=== PATIENT | female | born 1940 | race Caucasian/White ===

== ENCOUNTER 2017-01-02 15:56 | Emergency (ER) | payer MEDICARE, OTHER ==
[~2017-01-02] VITALS: Ht 167.6 cm; Wt 72.6 kg
[2017-01-02 16:02] VITALS: BP_SYST 124
--- NOTE | 2017-01-02 16:21 | NUR ---
Pt placed to ER bed 02, report given to DANETTE Patel.
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
--- NOTE | 2017-01-02 16:32 | NUR ---
ER at bedside examining patient.
--- NOTE | 2017-01-02 16:57 | NUR ---
Patient given written and verbal discharge instructions and verbalizes understanding. ER MD discussed with patient the results and treatment provided. Patient in stable condition. ID arm band removed. Rx of none given. Patient educated on pain management and to follow up with PMD. Pain Scale 0/10. Opportunity for questions provided and answered.
== END 2017-01-02 16:57 | disposition home or self-care (01) ==
LOC: SED 15:56
DX: S40.021A Contusion of right upper arm, initial encounter (principal); Z88.5 Allergy status to narcotic agent; E03.9 Hypothyroidism, unspecified; W18.00XA Striking against unspecified object with subsequent fall, initial encounter; Y93.89 Activity, other specified; Y92.89 Other specified places as the place of occurrence of the external cause; Y99.8 Other external cause status
CPT/HCPCS: 99281

== ENCOUNTER 2019-04-26 20:31 | Emergency (ER) | payer OTHER ==
[~2019-04-26] VITALS: Ht 165.1 cm; Wt 68.0 kg
[2019-04-26 20:35] VITALS: BP_SYST 140
--- NOTE | 2019-04-26 20:35 | NUR ---
Patient to ER bed 3 to gown for evaluation. Side rails up.
--- NOTE | 2019-04-26 20:40 | NUR ---
Pt denies Chest pain, nausea, vomiting, shortness of breath. No additional medical complaint at this time.
--- NOTE | 2019-04-26 20:40 | NUR ---
Pt awake, alert, oriented x4. Pt brought in by ambulance for c/o abdominal pain and constipation x3 days. pt states worsening symptoms of abdominal pain and constipation after epidural x3 a few days ago. Pt states that she tried to use stimulant laxatives which lead to more abdominal pain, pt states that she began to use fleets enema with no results as of yet. Pt states that she has had rectal "leaking" that is brown and watery, however no solid stool has passed. Pt states that she has history of vasovagal response/stimulation upon using restroom, and is afraid to push at all. pt resting in bed, appears to be in discomfort. aware, vss.
--- NOTE | 2019-04-26 21:15 | NUR ---
Pt attempting to use commode. Pt assisted onto commode, and off when finished. No syncope. Small dry feces noted and liquid brown waterlike stool, foul odor.
--- NOTE | 2019-04-26 21:37 | NUR ---
ER at bedside examining patient.
[2019-04-26 22:06] LABS: BASOPHILS % (AUTO) 0.2 % (0.0-2.0); EOSINOPHILS % (AUTO) 0.3 % (0.0-4.0); HEMOGLOBIN 13.7 g/dL (12.0-16.0); LYMPHOCYTES % (AUTO) 16.5 % (20.5-51.5); MEAN CORPUSCULAR HEMOGLOBIN 34 pg (27-31); MEAN CORPUSCULAR HGB CONC 34 % (32-36); MEAN CORPUSCULAR VOLUME 100 fL (79.0-98.0); MONOCYTES # (AUTO) 1.1 K/uL (0.0-1.0); MONOCYTES % (AUTO) 8.9 % (1.7-9.3); NEUTROPHILS # (AUTO) 9.2 K/uL (1.8-7.7); NEUTROPHILS % (AUTO) 74.1 % (40.0-70.0); PLATELET COUNT (AUTO) 250 K/uL (130-430); RED CELL DISTRIBUTION WIDTH 13.2 % (9.0-15.0); WHITE BLOOD COUNT (AUTO) 12.4 K/uL (4.8-10.8)
[2019-04-26 22:29] LABS: ALANINE AMINOTRANSFERASE 50 U/L (12-78); ANION GAP 8 (5-15); ASPARTATE AMINOTRANSFERASE 34 U/L (10-37); CALCIUM 8.6 mg/dL (8.4-11.0); CHLORIDE 97 mmol/L (98-107); CREATININE 0.84 mg/dL (0.55-1.30); GLUCOSE 114 mg/dL (70-99); POTASSIUM 3.5 mmol/L (3.5-5.1); SODIUM SERUM 134 mmol/L (136-145); TOTAL BILIRUBIN 0.7 mg/dL (0.0-1.0); UREA NITROGEN, BLOOD 21 mg/dL (8-21)
--- NOTE | 2019-04-26 22:39 | NUR ---
Pt resting in bed with friend bedside. pt indicates no additional medical complaint at this time. resting with no acute signs of distress. Given blanket for comfort
--- NOTE | 2019-04-26 22:42 | NUR ---
Bedside explaining results of Xray. explained that he would like the pt to recieve a CT scan for probable acute constipation. Pt agrees to procedure.
--- NOTE | 2019-04-26 23:03 | NUR ---
Patient transported to radiology via [facility], accompanied by Mej[facility] Burroughs Staff.
[2019-04-27] MEDS ORDERED: MAGNESIUM CITRATE 300 ML ORAL SOLUTION PO ONE (00:15)
[2019-04-27 00:28] VITALS: BP_SYST 131
--- NOTE | 2019-04-27 00:28 | NUR ---
Patient given written and verbal discharge instructions and verbalizes understanding. ER MD discussed with patient the results and treatment provided. Patient in stable condition. ID arm band removed. Rx of Glyerin given. Patient educated on pain management and to follow up with PMD. Pain Scale 0/10. Opportunity for questions provided and answered. Medication side effect fact sheet provided.
[2019-04-27] MEDS ORDERED: ASPIRIN PO (15:26)
[2019-04-27] MEDS ORDERED: CELE200C PO (15:26)
[2019-04-27] MEDS ORDERED: PROP10TA10 PO (15:26)
[2019-04-27] MEDS ORDERED: LEVOTHYROXINE SODIUM PO (15:26)
[2019-04-27] MEDS ORDERED: DILT120C89 PO (15:26)
[2019-04-27] MEDS ORDERED: TRIA1CAP6 PO (15:26)
[2019-04-27] MEDS ORDERED: ELA10 PO (15:26)
[2019-04-27] MEDS ORDERED: B CO1TAB7 PO (15:26)
== END 2019-04-27 00:28 | disposition home or self-care (01) ==
LOC: SED 20:31
DX: K59.00 Constipation, unspecified (principal); E03.9 Hypothyroidism, unspecified; Z88.5 Allergy status to narcotic agent
CPT/HCPCS: 36415; 74018; 80053; 85025; 99284

== ENCOUNTER 2019-04-27 13:20 | Emergency (ER) | payer MEDICARE, OTHER ==
[~2019-04-27] VITALS: Ht 165.1 cm; Wt 52.2 kg
[2019-04-27 13:31] VITALS: BP_SYST 147
[2019-04-27] MEDS ORDERED: SODIUM PHOSPHATE,MONO-DIBASIC 133 ML ENEMA RC ONE (14:00)
[2019-04-27] MEDS ORDERED: KETOROLAC TROMETHAMINE 60 MG/2 ML VIAL IM ONE (14:15)
[2019-04-27] MEDS ORDERED: ELA10 PO (15:26)
[2019-04-27] MEDS ORDERED: B CO1TAB7 PO (15:26)
[2019-04-27] MEDS ORDERED: CELE200C PO (15:26)
[2019-04-27] MEDS ORDERED: LEVOTHYROXINE SODIUM PO (15:26)
[2019-04-27] MEDS ORDERED: DILT120C89 PO (15:26)
[2019-04-27] MEDS ORDERED: PROP10TA10 PO (15:26)
[2019-04-27] MEDS ORDERED: TRIA1CAP6 PO (15:26)
[2019-04-27] MEDS ORDERED: ASPIRIN PO (15:26)
[2019-04-27 15:45] VITALS: BP_SYST 136
== END 2019-04-27 15:45 | disposition home or self-care (01) ==
LOC: SED 13:20
DX: K59.00 Constipation, unspecified (principal); I10 Essential (primary) hypertension; Z88.0 Allergy status to penicillin; Z88.1 Allergy status to other antibiotic agents; Z88.5 Allergy status to narcotic agent; Z79.899 Other long term (current) drug therapy
CPT/HCPCS: 96372; 99284; J1885; 99283